=== PATIENT | male | born 1990 | race Caucasian/White ===

== ENCOUNTER 2024-05-27 01:24 | Inpatient (IN) | payer OTHER, SELFPAY ==
[2024-05-27] MEDS ORDERED: Morphine 4 MG/ML VIAL ONE (02:16)
[2024-05-27] MEDS ORDERED: Ondansetron ODT 4 MG TAB SL PRN (02:45)
[2024-05-27] MEDS ORDERED: Ondansetron PF 4 MG/2 ML Vial IVP PRN (02:45)
[2024-05-27] MEDS ORDERED: Acetaminophen 325 MG TAB PO PRN (02:45)
[2024-05-27 03:39] LABS: #Basophils Less than 0.03 10x3/uL (0.0-0.2); %Basophils 0.2 % (0.0-1.0); %Eosinophils 1.9 % (0.0-10.0); %Lymphocytes 29.5 % (21.0-51.0); %Monocytes 3.4 % (0.0-10.0); %Neutrophils 64.6 % (42.0-75.0); Hematocrit 44.9 % (42.0-52.0); Hemoglobin 15.4 g/dL (14.0-18.0); Mean Corpuscular HGB CONC 34.3 g/dL (32.0-36.0); Mean Corpuscular Hemoglobin 29.4 pg (27.0-31.0); Mean Corpuscular Volume 85.9 fL (78.0-98.0); Mean Platelet Volume 10.4 fL (7.4-10.4); Platelet Count 283 10x3/uL (130-400); RBC Distribution Width 12.5 % (11.5-14.5); Red Blood Cell (RBC) Count 5.23 mill/uL (4.70-6.10)
[2024-05-27 03:54] LABS: INR-International Normal Ratio 1.1; Prothrombin Time 13.7 sec (12.0-14.7)
[2024-05-27 03:55] LABS: PTT 31.3 sec (22.9-36.1)
[2024-05-27 03:59] LABS: ALT (SGPT) 13 U/L (Less than 45); AST (SGOT) 23 U/L (11-34); Albumin 4.6 g/dL (3.1-4.5); Alkaline Phosphatase 63 U/L (40-110); Anion Gap 15 mmol/L (10-20); BUN (Urea Nitrogen) 14 mg/dL (8.9-20.6); Bilirubin, Total 0.3 mg/dL (0.3-1.2); Calc. Creatinine Clearance 0 mL/min (70-130); Calcium 8.9 mg/dL (7.8-10.44); Carbon Dioxide 23 mmol/L (22-29); Chloride 107 mmol/L (98-107); Estimated GFR 102; Globulin 3.5 g/dL (2.4-3.5); Glucose 91 mg/dL (70-105); Protein, Total 8.1 g/dL (6.0-8.3); Sodium 141 mmol/L (136-145)
[2024-05-27 04:05] VITALS: BMI 29.8
[2024-05-27] MEDS: Gentamicin 300 MG, Admixture Fee 1 EACH in Sodium Chloride 0.9% 100 ML IVPB SCH (05:53)
[2024-05-27] MEDS: CEFAZOLIN 1 GM in Sodium Chloride 0.9% 100 ML IVPB SCH (06:04)
[2024-05-27] MEDS: Morphine 4 MG/ML VIAL SLOW IVP PRN ×2 (06:05→20:55)
[2024-05-27] MEDS: D5 1/2 NS w/20 mEq KCL 1,000 ML IV SCH (07:19)
[2024-05-27] MEDS ORDERED: Vancomycin 1 GM in Premix 1 BAG IVPB SCH (12:45)
[2024-05-27] MEDS ORDERED: Lidocaine 1% PF 5 ML VIAL ONE (13:15)
[2024-05-27] MEDS ORDERED: Midazolam HCl 2 mg/2 ml Vial ONE (13:15)
[2024-05-27] MEDS ORDERED: Dexamethasone 20 MG/5 ML VIAL ONE (13:15)
[2024-05-27] MEDS ORDERED: Ondansetron PF 4 MG/2 ML Vial ONE (13:15)
[2024-05-27] MEDS ORDERED: fentaNYL PF 100 MCG/2 ML SYRINGE ONE (13:15)
[2024-05-27] MEDS ORDERED: PROPOFOL 20 ML ONE (13:15)
[2024-05-27] MEDS ORDERED: Mineral Oil Sterile 10 ML VIAL ONE (13:27)
[2024-05-27] MEDS ORDERED: Bupivacaine PF 0.5% 30 ML VIAL ONE (13:27)
[2024-05-27] MEDS ORDERED: Bacitracin Zinc Ointment 30 gm TUBE ONE (13:28)
[2024-05-27] MEDS ORDERED: Sodium Chloride 0.9% 0 ML ONE (13:54)
[2024-05-27] MEDS ORDERED: CEFAZOLIN 1 GM VIAL ONE (13:54)
[2024-05-27] MEDS ORDERED: Vancomycin 1 GM/200 ML (FROZEN) BAG ONE (13:54)
[2024-05-27] MEDS ORDERED: Albuterol HFA (OR) 200 PUFF INH ONE ×2 (14:19→14:25)
[2024-05-27] MEDS ORDERED: Heparin 10,000 UNITS/ 10 ML VIAL ONE (14:19)
[2024-05-27] MEDS ORDERED: PHENYLEPHRINE-NS 100 MCG/ML 10 ML SYRINGE ONE ×2 (14:21→14:58)
[2024-05-27] MEDS ORDERED: Glycopyrrolate 0.2 MG/ML 5 ML SYRINGE ONE (14:21)
[2024-05-27] MEDS ORDERED: Vancomycin 1 GM VIAL ONE (14:31)
[2024-05-27] MEDS ORDERED: ePHEDrine Sulfate 50 MG/10 ML VIAL ONE (14:49)
[2024-05-27] MEDS ORDERED: Milk Of Magnesia 30 ML UDCUP PO PRN (16:35)
[2024-05-27] MEDS ORDERED: Promethazine HCl 25 MG/ML VIAL IM PRN (16:35)
[2024-05-27] MEDS ORDERED: fentaNYL 50 mcg/mL 1 mL Vial SLOW IVP PRN (16:35)
[2024-05-27] MEDS ORDERED: [UNRECOGNIZED DRUG - REMARK] FS PRN (16:45)
[2024-05-27] MEDS: CEFAZOLIN 2 GM in Sodium Chloride 0.9% 100 ML IVPB SCH (20:56)
[2024-05-27] MEDS: Aspirin 81 mg Enteric Coated Tablet PO SCH (20:57)
[2024-05-27] MEDS: Gentamicin 80 MG/2 ML VIAL IM SCH (20:58)
[2024-05-27] MEDS: HYDROcodone/Acetaminophen 5/325 mg Tablet PO PRN (23:55)
[2024-05-28] MEDS: traMADol HCl 50 MG TAB PO PRN (09:35)
[2024-05-28] MEDS: Ketorolac Tromethamine 30 MG (1 mL) VIAL IVP PRN (12:01)
[2024-05-28 12:58] VITALS: BP 151/100; TEMP 97.7
[2024-05-30] MEDS ORDERED: TETANUS, DIPHTHERIA TOX,ADULT (TDVAX) 0.5 ML VIAL IM ONE (16:35)
== END 2024-05-28 13:00 | disposition home or self-care (01) | DRG 517 ==
LOC: ERS 01:24 → MSONC 02:36
PROVIDERS: ADMIT Orthopaedic Surgery Hand Surgery; ATTEND Orthopaedic Surgery Hand Surgery
PROC: 3E033XZ Introduction of Vasopressor into Peripheral Vein, Percutaneous Approach (ICD-10-PCS; principal; 2024-05-27)
PROC: 0PBT0ZZ Excision of Right Finger Phalanx, Open Approach (ICD-10-PCS; 2024-05-27)
DX: S62.632B Displaced fracture of distal phalanx of right middle finger, initial encounter for open fracture (principal); I10 Essential (primary) hypertension; F17.210 Nicotine dependence, cigarettes, uncomplicated; I45.10 Unspecified right bundle-branch block; W31.9XXA Contact with unspecified machinery, initial encounter; Z98.890 Other specified postprocedural states
CPT/HCPCS: 36415; 80053; 80170; 85025; 85610; 85730; 93005; 96374; 96375; J0665; J0690; J1100; J1580; J1644; J1885; J2250; J2270; J2405; J2704; J3370; J3480; J7042